=== PATIENT | male | born 1955 | race Asian ===

== ENCOUNTER 2019-02-06 12:54 | Emergency (ER) | payer OTHER ==
[~2019-02-06] VITALS: Ht 175.3 cm; Wt 72.6 kg
[2019-02-06 12:54] VITALS: BP 178/87; TEMP 98.1
[2019-02-06 13:36] LABS: PLATELET COUNT 209 K/uL (142-355)
[2019-02-06 13:42] LABS: POTASSIUM 4.5 mmol/L (3.6-5.2)
[2019-02-06] MEDS ORDERED: EUTHYROX50 MCG PO (16:26)
[2019-02-06] MEDS ORDERED: AMLODIPINE BESYLATE PO (16:26)
[2019-02-06] MEDS ORDERED: LISI20TA11 PO (16:27)
[2019-02-06] MEDS ORDERED: VITAMIN D32000 UNI3 PO (16:29)
[2019-02-06] MEDS ORDERED: GLIP10TA55 PO (16:32)
[2019-02-06] MEDS ORDERED: AMANTADINE100 M1 PO (16:33)
[2019-02-06] MEDS ORDERED: CORRECTOL100 MG PO (16:34)
[2019-02-06] MEDS ORDERED: EQL IRON SUPPL325 M1 PO (16:35)
[2019-02-06] MEDS ORDERED: FORTAMET500 MG PO (16:36)
[2019-02-06] MEDS ORDERED: PROPRANOLOL40 MG PO (16:38)
[2019-02-06] MEDS ORDERED: SENNA PO (16:39)
[2019-02-06] MEDS ORDERED: TAMS0.4C PO (16:40)
[2019-02-06] MEDS ORDERED: GNP MELATONIN3 MG PO (16:41)
[2019-02-06] MEDS ORDERED: DIVA500T2 PO (16:41)
[2019-02-06] MEDS ORDERED: TRAZ100T PO (16:42)
[2019-02-06] MEDS ORDERED: ABILIFY2 MG PO (16:45)
== END 2019-02-06 14:33 | disposition other institution (70) ==
LOC: ED 13:07
PROVIDERS: Emergency Medicine
DX: R45.851 Suicidal ideations (principal); Z04.6 Encounter for general psychiatric examination, requested by authority
CPT/HCPCS: 80053; 81000; 85027; 93005; 99285

== ENCOUNTER 2019-06-30 16:30 | Inpatient (IN) | payer OTHER ==
[~2019-06-30] VITALS: Ht 180.3 cm; Wt 68.0 kg
[~2019-06-30 16:30] MED LIST: ABILIFY 10MG TAB PO; ABILIFY MYCITE30 MG PO; ABILIFY2 MG PO; AMANTADINE100 M1 PO; AMLODIPINE BESYLATE PO; BENZ1TAB43 PO; CHLO25IN IM; CORRECTOL100 MG PO; CVS SENNA8.6 MG PO; DIVA500T2 PO; DULCOLAX SS100 MG PO; EQL IRON SUPPL325 M1 PO; EUTHYROX50 MCG PO; FE TABS325 MG PO; FORTAMET500 MG PO; GLIP10TA55 PO; GNP MELATONIN3 MG PO; INVEGA SUS117 MG/0.7 IM; INVEGA SUST IM; LISI20TA11 PO; MELATONIN3 M1 PO; METF500T PO; OLAN10INJ IM; OLANZAPINE10 M2 PO; OLANZAPINE10 MG PO; PROPRANOLOL40 MG PO; PROVERA5 MG PO; RISP1TAB PO; RISP2TAB2 PO; SENNA PO; TAMS0.4C PO; TIROSINT50 MCG PO; TRAZ100T PO; TRAZODONE HYDR100 MG PO; VITAMIN D31000 UNI1 PO; VITAMIN D32000 UNI3 PO; [UNRECOGNIZED DRUG - OTHER] PO
[2019-06-30] MEDS ORDERED: LORA2INJ21 IM (17:38)
[2019-06-30] MEDS ORDERED: ABILIFY 10MG TAB PO (17:38)
[2019-06-30] MEDS ORDERED: ONDA4TAB3 PO (17:38)
[2019-06-30] MEDS ORDERED: RISP1TAB PO (17:38)
[2019-06-30] MEDS ORDERED: MEDR2.5T19 PO (17:38)
[2019-06-30] MEDS ORDERED: OLANZAPINE10 MG PO (17:38)
[2019-06-30] MEDS ORDERED: TRAZ50TA36 PO (17:38)
[2019-06-30] MEDS ORDERED: AMANTADINE100 MG PO (17:38)
[2019-06-30] MEDS ORDERED: DIVA500T2 PO ×2 (17:38)
[2019-06-30] MEDS ORDERED: HALO5INJ3 IM (17:38)
[2019-06-30] MEDS ORDERED: BENZ1TAB43 PO (17:38)
[2019-06-30] MEDS ORDERED: OXCARBAZEPIN300 MG PO (17:38)
[2019-06-30] MEDS ORDERED: CHLO25IN IM (17:38)
[2019-06-30 19:00] VITALS: BP 121/62
[2019-06-30 19:56] LABS: PLATELET COUNT 297 K/uL (142-355)
[2019-06-30 20:00] VITALS: BP 110/80; TEMP 97.2
[2019-06-30 20:12] LABS: POTASSIUM 3.9 mmol/L (3.6-5.2)
[2019-06-30 21:00] VITALS: BP 88/45
[2019-06-30 22:00] VITALS: BP 98/56
[2019-06-30 23:00] VITALS: BP 100/50
[2019-07-01] VITALS (12 sets, daily range): BP systolic 82–173; BP diastolic 62–89; TEMP 97.4–98.2; Ht 180.3 cm; Wt 68.0 kg
[2019-07-01 07:48] LABS: POTASSIUM 3.9 mmol/L (3.6-5.2)
[2019-07-01 10:09] LABS: PLATELET COUNT 237 K/uL (142-355)
[2019-07-02] VITALS (16 sets, daily range): BP systolic 126–194; BP diastolic 64–91; TEMP 97.3–98.6
[2019-07-03 04:00] VITALS: BP 151/92
[2019-07-03 07:00] VITALS: BP 151/73; TEMP 98
[2019-07-03 08:30] VITALS: BP 155/73; TEMP 98.6
[2019-07-03 11:26] VITALS: BP 165/105; TEMP 98
[2019-07-03 11:30] VITALS: BP 165/75; TEMP 98.6
[2019-07-03 13:24] VITALS: BP 165/75; TEMP 98.6
[2019-07-07] MEDS ORDERED: TRAZ50TA36 PO (11:09)
[2019-07-07] MEDS ORDERED: OXCARBAZEPIN300 MG PO (11:10)
[2019-07-07] MEDS ORDERED: TAMS0.4C PO (11:10)
[2019-07-07] MEDS ORDERED: PROPRANOLOL10 MG PO (11:10)
[2019-07-07] MEDS ORDERED: RISP1TAB PO (11:10)
[2019-07-07] MEDS ORDERED: SCOP1.5D TOP (11:10)
[2019-07-07] MEDS ORDERED: LISI20TA11 PO (11:11)
[2019-07-07] MEDS ORDERED: METF500T PO (11:11)
[2019-07-07] MEDS ORDERED: LEVO0.0529 PO (11:11)
[2019-07-07] MEDS ORDERED: MEDR2.5T19 PO (11:11)
[2019-07-07] MEDS ORDERED: OLANZAPINE10 MG PO (11:11)
[2019-07-07] MEDS ORDERED: CHOL100034 PO (11:12)
[2019-07-07] MEDS ORDERED: DOCU100C10 PO (11:12)
[2019-07-07] MEDS ORDERED: DIVA500T2 PO ×2 (11:12)
[2019-07-07] MEDS ORDERED: GLUCOTROL XL 5MG TAB PO (11:12)
[2019-07-07] MEDS ORDERED: FERROUS SULF325 MG PO (11:12)
[2019-07-07] MEDS ORDERED: BENZ1TAB43 PO (11:13)
[2019-07-07] MEDS ORDERED: DULCOLAX 5MG TAB PO (11:13)
[2019-07-07] MEDS ORDERED: ABILIFY MYCITE30 MG PO (11:13)
[2019-07-07] MEDS ORDERED: AMANTADINE100 MG PO (11:14)
[2019-07-07] MEDS ORDERED: AMLODIPINE BESYLATE PO (11:14)
[2019-07-07] MEDS ORDERED: CHLO25IN IM (11:15)
[2019-07-07] MEDS ORDERED: MAG OXIDE400 MG PO (11:16)
== END 2019-07-03 14:35 | disposition other institution (70) | DRG 390 ==
LOC: ICU 16:30
PROVIDERS: ADMIT Family Medicine
DX: K56.699 Other intestinal obstruction unspecified as to partial versus complete obstruction (principal); R11.2 Nausea with vomiting, unspecified; I12.9 Hypertensive chronic kidney disease with stage 1 through stage 4 chronic kidney disease, or unspecified chronic kidney disease; E11.22 Type 2 diabetes mellitus with diabetic chronic kidney disease; N18.3 Chronic kidney disease, stage 3 (moderate); N40.0 Benign prostatic hyperplasia without lower urinary tract symptoms; E86.0 Dehydration; D64.89 Other specified anemias; F25.0 Schizoaffective disorder, bipolar type; G20 Parkinson's disease
CPT/HCPCS: 80053; 83605; 85014; 85018; 85027; 87040; C1768; J0696; J1200; J1630; J2060; J3230; J3490

== ENCOUNTER 2019-08-20 19:44 | Emergency (ER) | payer OTHER ==
[~2019-08-20] VITALS: Ht 175.3 cm; Wt 71.7 kg
[~2019-08-20 19:44] MED LIST changes: +AMANTADINE100 MG PO; +CHOL100034 PO; +DOCU100C10 PO; +DULCOLAX 5MG TAB PO; +FERROUS SULF325 MG PO; +GLUCOTROL XL 5MG TAB PO; +HALO5INJ3 IM; +LEVO0.0529 PO; +LORA2INJ21 IM; +MAG OXIDE400 MG PO; +MEDR2.5T19 PO; +ONDA4TAB3 PO; +OXCARBAZEPIN300 MG PO; +PROPRANOLOL10 MG PO; +SCOP1.5D TOP; +TRAZ50TA36 PO
[2019-08-20 20:00] LABS: PLATELET COUNT 211 K/uL (142-355)
[2019-08-20 20:06] LABS: POTASSIUM 4.7 mmol/L (3.6-5.2)
[2019-08-20 20:25] VITALS: BP 169/74; TEMP 98.2
[2019-08-20] MEDS ORDERED: TRAZ50TA36 PO (21:13)
[2019-08-20] MEDS ORDERED: DIVA500T2 PO (21:14)
[2019-08-27] MEDS ORDERED: BENZ1TAB43 PO (08:52)
[2019-08-27] MEDS ORDERED: CLOZ100T PO (08:52)
== END 2019-08-20 20:25 | disposition other institution (70) ==
LOC: ED 19:44
PROVIDERS: Emergency Medicine
DX: F28 Other psychotic disorder not due to a substance or known physiological condition (principal); Z04.6 Encounter for general psychiatric examination, requested by authority
CPT/HCPCS: 36415; 80053; 81000; 85027; 93005; 99285